=== PATIENT | female | born 1965 | race Caucasian/White ===

== ENCOUNTER 2019-02-19 13:51 | Inpatient (IN) | payer OTHER ==
[~2019-02-19] VITALS: Ht 172.7 cm; Wt 68.0 kg
--- NOTE | 2019-02-19 14:02 | NUR ---
PT BIB BY AMBULANCE. SON CALLED 911 FOR PROGRESSIVE SLURRED SPEECH ALONG WITH DIFFICULTY IN ADL'S AND WALKING FOR THE LAST 6 MONTHS. PT ARRIVES ALERT WITH SLURRED SPEECHA ND UNABLE TO ANSWER QUESTIONS APPROPRIATELY. PT APPEARS TO BE WEAK. PER SON AT BEDSIDE PT HAS HX OF ARTHRITIS AND DEPRESSIO DUE TO HER HUSBANDD 2 YEARS AGO. CONNECTED TO MAIL MANAGER AND VSS. DR COLES AT BEDSIDE
[2019-02-19 14:19] LABS: BASOPHIL % 0.5 % (0-2); PLATELET COUNT 294 x10^3mcL (130-400); RED CELL DISTRIBUTION WIDTH 14.2 % (11.5-14.5)
[2019-02-19 14:31] LABS: ALKALINE PHOSPHATASE 117 U/L (46-116); ALT/SGPT 64 U/L (14-59); AST/SGOT 35 U/L (15-37); BILIRUBIN TOTAL 1.8 mg/dL (0.20-1.00); CALCIUM 9.1 mg/dL (8.5-10.1); CARBON DIOXIDE 33.1 mmol/L (21-32); CHLORIDE SERUM 104 mmol/L (98-107); CREATININE SERUM 0.6 mg/dL (0.6-1.0); GFR1 > 60 mL/min; GLUCOSE SERUM 112 mg/dL (74-106); SODIUM SERUM 145 mmol/L (136-145); TOTAL PROTEIN, SERUM 6.6 g/dL (6.4-8.2)
[2019-02-19 14:42] LABS: ALBUMIN 3.3 g/dL (3.4-5.0); POTASSIUM SERUM 2.8 mmol/L (3.5-5.1)
--- NOTE | 2019-02-19 14:44 | NUR ---
ATTEMPTED TO TAKE PT TO RESTROOM VIA WHEELCHAIR FOR URINE SAMPLE. PT WAS UNABLE TO URINATE. DR. COLES MADE AWARE.
--- NOTE | 2019-02-19 14:49 | NUR ---
PT OFF FLOOR TAKEN FOR CT.
[2019-02-19 15:53] LABS: AMPHETAMINE QUAL UR NONE DETECTED (See below)
--- NOTE | 2019-02-19 16:22 | NUR ---
REPORT GIVEN TO MESHA BOWDEN ON MED/SURG UNIT TO ASSUME CARE OF PT.
--- NOTE | 2019-02-19 16:39 | NUR ---
RECEIVED PT FROM ED VIA Flowgram, PER PT'S SON PT USUALLY HAS X4 EPISODES OF FALL EVERY DAY. PT IS AAOX2 (PERSON, PLACE AND BIRTHDATE). ABLE TO FOLLOW SIMPLE COMMANDS. SLURRED AND SLOW SPEECH. HAND PRESCHOOL DIRECTOR ARE WEAK BUT EQUAL. NO FACIAL DROOP. NO SOB NOTED, LUNG SOUNDS CTA, O2 SAT=98%, RA. DENIES CHEST PAIN/PRESSURE, NSR. DENIES ABDOMINAL DISCOMFORT. W/ RLE SPLINT, PT ABLE TO MOVE TOES. DENIES NUMBNESS/TINGLING SENSATION. LIMITED ROM ON RLE. STATED THAT SHE HAS 2/10 ACHING RLE PAIN WORSE ON MOVEMENT. IV SITE ON THE RAC IS PATENT AND INTACT. SIDE RAILS UPX2. CALL LIGHT ON REACH. PT'S SON AT BEDSIDE. PRIMARY NURSE KAL AT BEDSIDE FOR CONTINUITY OF CARE
[2019-02-19 16:51] VITALS: BP 114/75
[2019-02-19 17:00] VITALS: Ht 172.7 cm; Wt 68.0 kg
--- NOTE | 2019-02-19 17:40 | NUR ---
DR GREY PAGED AT THIS TIME REGARDING PATIENTS TELEMETRY STATUS. ADMIT ORDER FOR M/S. TO RECOMMEND POSSIBLE TELE PATIENT DUE TO K 2.8.
[2019-02-19 18:04] LABS: FREE T4 1.29 ng/dL (0.76-1.46); FREE THYROXINE INDEX 3.1 ug/dL (1.4-4.5); T4(THYROXINE) 8.6 ug/dL (4.7-13.3)
[2019-02-19 18:16] LABS: T3 TOTAL 1.11 ng/mL
[2019-02-19 18:19] LABS: CHOLESTEROL/HDL RATIO 4.2; MAGNESIUM 2.2 mg/dL (1.8-2.4); PHOSPHOROUS 3.6 mg/dL (2.5-4.9)
--- NOTE | 2019-02-19 18:19 | NUR ---
PATIENT TAKEN OFF TELE AND TRANSITIONED TO MED SURG AT THIS TIME.
--- NOTE | 2019-02-19 19:37 | NUR ---
RECEIVED PT FROM PREVIOUS SHIFT. AAO. ABLE TO MAKE NEEDS KNOWN. SPEECH SLURRED BUT APPROPRIATE. MEDSURG. DENIES PAIN. NO C/O HEADACHE/DIZZINESS. BREATHING E/U ON RA. NO SOB. IV SITE TO RAC, CDI, IVF INFUSING WELL. NO ERYTHEMA OR SWELLING NOTED AT SITE. CALL LIGHT WITHIN REACH. SAFETY MEASURES IN PLACE. DAUGHTER AT BEDSIDE. WILL CONTINUE TO MONITOR.
[2019-02-19] MEDS ORDERED: PROZ20 PO (19:39)
[2019-02-19] MEDS ORDERED: CELEBREX200 MG PO (19:39)
[2019-02-19] MEDS ORDERED: LOSARTAN POTASS50 M1 PO (19:44)
--- NOTE | 2019-02-19 19:47 | NUR ---
PT ABOUT TO BE TAKEN DOWN VIA GUNEY FOR CT SCAN OF R ANKLE ACCOMPANIED BY TECH.
--- NOTE | 2019-02-19 20:05 | NUR ---
PT RETURNED FROM CT SCAN. NO S/S ACUTE DISTRESS.
[2019-02-19 20:24] VITALS: BP 115/70
--- NOTE | 2019-02-19 21:24 | NUR ---
DR. CASANOVA AND DR. HURTADO AT BEDSIDE FOR MSE.
--- NOTE | 2019-02-20 00:47 | NUR ---
PT RESTING IN BED WITH EYES CLOSED. NO S/S ACUTE DISTRESS. BREATHING E/U. SAFETY MEASURES IN PLACE. CALL LIGHT WITHIN REACH. WILL CONTINUE TO MONITOR.
--- NOTE | 2019-02-20 04:57 | NUR ---
PT C/O HEADACHE, UNABLE TO RATE ON SCALE, MEDICATED PER EMAR.
[2019-02-20 05:16] VITALS: BP 117/77
--- NOTE | 2019-02-20 06:17 | NUR ---
PT STILL C/O 8/10 HEADACHE PAIN, MEDICATED PER EMAR.
[2019-02-20 06:39] LABS: CALCIUM 8.4 mg/dL (8.5-10.1); CARBON DIOXIDE 28.8 mmol/L (21-32); CHLORIDE SERUM 108 mmol/L (98-107); CREATININE SERUM 0.5 mg/dL (0.6-1.0); GFR1 > 60 mL/min; GLUCOSE SERUM 105 mg/dL (74-106); SODIUM SERUM 145 mmol/L (136-145)
--- NOTE | 2019-02-20 07:23 | NUR ---
RECEIVED ASLEEP BUT AROUSABLE. IN NO RESP. DISTRESS. VS STABLE. NO C/O PAIN OR DISCOMFORT AT THIS TIME. IVF INFUSING WELL. CALL LIGHT WITHIN REACH. WILL CONTINUE WITH PLAN OF CARE.
[2019-02-20 07:50] LABS: BASOPHIL % 0.5 % (0-2); PLATELET COUNT 259 x10^3mcL (130-400); RED CELL DISTRIBUTION WIDTH 13.9 % (11.5-14.5)
[2019-02-20 08:16] VITALS: BP 118/78
--- NOTE | 2019-02-20 08:25 | NUR ---
ECHOCARDIOGRAM PENDING-HAVING BREAKFAST
--- NOTE | 2019-02-20 12:15 | NUR ---
FAMILY AT BEDSIDE. PT IN NO DISTRESS. DENIES ANY DISCOMFORT. CALL LIGHT WITHIN REACH.
--- NOTE | 2019-02-20 16:20 | NUR ---
REPOSITIONED IN BED FOR COMFORT. NO DISTRESS NOTED. NO C/O PAIN.
[2019-02-20 17:09] VITALS: BP 118/80
--- NOTE | 2019-02-20 18:48 | NUR ---
REMAINS IN NO DISTRESS. AWAKE AND ALERT. WITH SLURRED SPEECH BUT ABLE TO MAKE NEEDS KNOWN. NO C/O PAIN OR DISCOMFORT AT THIS TIME. CALL LIGHT WITHIN REACH. IVF INFUSING TO KVO AND SITE CLEAR. WILL BE ENDORSED TO INCOMING SHIFT.
--- NOTE | 2019-02-20 19:20 | NUR ---
RECEIVED PT FROM PREVIOUS SHIFT NURSE. PT AOX3, SPEECH SLURRED. DENIES VASQUEZ/DIZZINESS. MED SURG PT. DENIES CP/PRESSURE. DENIES SOB/DIFFICULTY BREATHING, ON RA. IV TO R. HAND, INTACT AND PATENT. SPLINT TO L. LEG. BED IN LOWEST POSITION. CALL LIGHT WITHIN REACH. WILL CONTINUE TO MONITOR.
[2019-02-20 20:35] VITALS: BP 118/77
--- NOTE | 2019-02-21 03:15 | NUR ---
PT RESTING IN BED. RR EVEN AND UNLABORED. IN NO ACUTE DISTRESS. CALL LIGHT WITHIN REACH. BED IN LOWEST POSITION. WILL CONTINUE TO MONITOR.
[2019-02-21 05:04] VITALS: BP 130/85
[2019-02-21 05:59] LABS: BASOPHIL % 0.8 % (0-2); PLATELET COUNT 242 x10^3mcL (130-400); RED CELL DISTRIBUTION WIDTH 14.1 % (11.5-14.5)
[2019-02-21 06:31] LABS: CALCIUM 8.7 mg/dL (8.5-10.1); CARBON DIOXIDE 29.7 mmol/L (21-32); CHLORIDE SERUM 109 mmol/L (98-107); CREATININE SERUM 0.5 mg/dL (0.6-1.0); GFR1 > 60 mL/min; GLUCOSE SERUM 101 mg/dL (74-106); MAGNESIUM 1.8 mg/dL (1.8-2.4); PHOSPHOROUS 3.4 mg/dL (2.5-4.9); SODIUM SERUM 146 mmol/L (136-145)
--- NOTE | 2019-02-21 07:00 | NUR ---
RECEIVED BEDSIDE REPORT FROM SORTER OPERATOR NURSE. PATIENT RESTING COMFORTABLY IN BED. NO APPARENT DISTRESS OR DISCOMFORT NOTED. BREATHING EVEN AND UNLABORED. NO RESPIRATORY DISTRESS NOTED. PATIENT DENIES CHEST PAIN/PRESSURE. IV PATENT AND INTACT. SPLINT NOTED TO LEFT LEG. PATIENT DENIES PAIN AT THIS TIME.ALL QUESTIONS AND CONCERNS ADDRESSED. ALL NEEDS ATTENDED TO. WILL CONTINUE TO MONITOR
[2019-02-21 08:14] VITALS: BP 123/77
--- NOTE | 2019-02-21 10:37 | NUR ---
ALL MORNING MEDICATIONS ADMINISTERED. PATIENT TOLERATED MEDICATION WELL. NO APPARENT DISTRESS OR DISCOMFORT NOTED. NO ADVERSE EFFECTS NOTED. ALL NEEDS ATTENDED TO. WILL CONTINUE TO MONITOR
--- NOTE | 2019-02-21 12:15 | NUR ---
DR RENEE AT BEDSIDE REVIEWING POC WITH PATIENT AT THIS TIME. ALL QUESTIONS AND CONCERNS ADDRESSED. ALL NEEDS ATTENDED TO. WILL CONTINUE TO MONITOR
--- NOTE | 2019-02-21 12:24 | NUR ---
Initial Nutrition Assessment: (246-B) MOSES GRIMES 54F Dx: Progressive weakness, failure to thrive, hypokalemia PMHx: HTN, Depression, Arthritis PSHx: Int Fix both femurs Labs: Na 146 H, K 4.0 WNL, Cl 109 H, Cr 0.5 L, Alb 3.3 L, ALT 64 H, Alk Phos 117 H, HDL 35 L, BNP 9.31 L Meds: Colace, Cozaar, Protonix, Zofran Diet: Regular PO intake since admission: <50% Ht: 68in Wt: 149# BMI: 22.7 Bed scale: 160.5# IBW: 140# %IBW: 106% UBW: 150# Age: 54 Food Allergies: NKFA Skin: Rufus: 17 Edema: Trace L ankle GI: Last BM: 02/18 RD Note (02/21): Consult received for dysphagia; swallow eval order for ROOM ATTENDANT received 02/20. Visited pt bedside, pt's daughter, , and kids present. Spoke w/ pt and daughter, daughter states to have more accurate information about pt vs pt r/t altered mental status.. Daughter states pt can chew but just cannot swallow, has poor PO, eats very little from trays. Daughter states pt has lost 50# in the last 6 months, pt lives w/ pt's son. Awaiting results from swallow eval for diet texture. Pt appropriate for diet supplementation, daughter would like to receive vanilla flavor w/ each meal. Spoke w/ Dr [place] Sayed regarding ONS, confirmed. Problem with: N/V/D/C: None Problems with: Chewing: No Swallowing: Yes Current appetite: Poor, per daughter Recent wt change: 50# x 6mo, per daughter %wt change: 25%, per daughter Vitamin/Supplement use: None Special diet at home: Regular Physical activity: N/A Nutrition education given (specify specific nutrition education and handout given): None given at this time. Food-drug interactions? Education given? None given at this time. Estimated Nutritional Needs Based on current body weight (68 kg) Energy: 3737-9962 kcal/day (25-30 kcal/kg for maintenance) Protein: 68-82 g/day (1.0-1.2 g/kg for maintenance) Fluid: 8497-1570 mL/day (1 mL/kcal) or per MD Nutrition Diagnosis: Inadequate protein-energy intake r/t dysphagia, poor appetite AEB PO intake <50% of meals Intervention 1. Continue Regular diet order, adjust texture per ROOM ATTENDANT and MD for swallow eval r/t dysphagia. 2. Add Ensure Pudding Vanilla TID w/ each meal. 3. Add Ensure Enlive Vanilla QD snack. Monitor/Evaluate Goal: PO intake at least 75% of estimated needs Monitor: PO intake, Labs, GI function F/U in 3-5 days as modeate risk 02/24-02/26
--- NOTE | 2019-02-21 12:26 | NUR ---
Recommendations: 1. Continue Regular diet order, adjust texture per PROFESSOR OF COMMUNICATION AND WRITING and MD for swallow eval r/t dysphagia. 2. Add Ensure Pudding Vanilla TID w/ each meal. 3. Add Ensure Enlive Vanilla QD snack.
--- NOTE | 2019-02-21 15:43 | NUR ---
PT WAS SEEN FOR DYSPHAGIA. PT WAS ABLE TO SAFELY SWALLOW MS DIET WITH THIN LIQUID WITHOUT S/S OF ASPIRATION. MILD DIFFICULTY WITH MASTICATION SKILLS FOR REGULAR DIET. RECOMMENDATION MS DIET WITH CHOPPED MEAT AND VEG WITH THIN LIQUID SMALL BITES AND SIPS ONLY
--- NOTE | 2019-02-21 15:45 | NUR ---
SPEECH THERAPIST CHRISTIAN AT BEDSIDE EVALUATING PATIENT. PER CHRISTIAN, PATIENT TO BE ON MECHANICAL SOFT CHOPPED REGULAR DIET. SPOKE TO DR GREY REGARDING DIET ORDER CHANGE AND HE IS TO CHANGE DIET ORDER AT THIS TIME. WILL CONTINUE TO MONITOR
[2019-02-21 17:24] VITALS: BP 124/81
--- NOTE | 2019-02-21 18:47 | NUR ---
PATIENT RESTING COMFORTABLY IN BED AT THIS TIME. NO APPARENT DISTRESS OR DISCOMFORT NOTED. IV PATENT AND INTACT. ALL QUESTIONS AND CONCERNS ADDRESSED. ALL NEEDS ATTENDED TO. SAFETY PRECAUTIONS MAINTAINED. WILL ENDORSE ALL CARE TO CHEMIST HELPER NURSE
--- NOTE | 2019-02-21 19:45 | NUR ---
RECEIVED AWAKE IN BED, SKIN WARM AND DRY TO TOUCH WITH 2+EDEMA ON LLE, NOTICED WITH SLOW THOUGH PROCESS, SLOW TO RESPOND WITH SLURRED SPEECH, DENIES ANY HEADACHE/DISCOMFORT AT THIS TIME. PLACED CALL LIGHTWITHIN REACH, INSTRUCTED TO CALL FOR ANY ASSISTANCE NEEDED. WILL CONTINUE TO MONITOR.
--- NOTE | 2019-02-21 21:30 | NUR ---
ALL DUE MDICATIONS GIVEN AND WELL TOLERAED. ASSISTED IN REPOSITIONING FOR COMFORT.
[2019-02-21 21:33] VITALS: BP 127/84
--- NOTE | 2019-02-21 23:56 | NUR ---
ASSISTED WITH BEDPAN FOR BLADDER ELIMINATION. GOOD PERICARE RENDERED. KEPT CLEAN AND DRY. CALL LIGHT WITHIN REACH.
--- NOTE | 2019-02-22 00:10 | NUR ---
EYES CLOSED, APPARENTLY ASLEEP, BUT AROUSABLE TO TACTILE/VERBAL STIMULI. UA SHOWS WITH 1+ LEUKOCYTE EASTEARASE WITH MANY BACTERIA. DR PRINCE MADE AWARE, AWAITNG FOR NEW ORDER.
--- NOTE | 2019-02-22 00:30 | NUR ---
EYES CLOSED, APPARENTLY ASLEEP SOUNDLY, AROUSABLE TO VERBAL STIMULI. RESPIRATION UNLABORED. BED IN LOWEST POSITION.
--- NOTE | 2019-02-22 05:46 | NUR ---
INCONTINENT OF URIN. GOOD PERICARE RENDERED. KEPT CLEAN AND DRY. ALL NEEDS ATTENDED.
[2019-02-22 05:58] VITALS: BP 121/80
[2019-02-22 06:00] LABS: BASOPHIL % 0.8 % (0-2); PLATELET COUNT 305 x10^3mcL (130-400)
[2019-02-22 06:18] LABS: CALCIUM 8.8 mg/dL (8.5-10.1); CARBON DIOXIDE 29.6 mmol/L (21-32); CHLORIDE SERUM 109 mmol/L (98-107); CREATININE SERUM 0.5 mg/dL (0.6-1.0); GFR1 > 60 mL/min; GLUCOSE SERUM 106 mg/dL (74-106); POTASSIUM SERUM 4.1 mmol/L (3.5-5.1); SODIUM SERUM 145 mmol/L (136-145)
--- NOTE | 2019-02-22 07:27 | NUR ---
ASSUMED CARE OF PATIENT. SEEN RESTING THIS MORNING, EASILY AROUSABLE. NO COMPLAINTS OF PAIN OR DISCOMFORT. NO APPARENT DISTRESS NOTED. IV ON RFA PATENT AND INFSUING NS AT 10ML/HR. NO REDNESS/SWELLING NOTED. WILL CONTINUE TO MONITOR.
--- NOTE | 2019-02-22 09:35 | NUR ---
PATIENT SEEN RESTING IN BED WITH FAMILY AT BEDSIDE. NO ACUTE COMPLAINTS AT THIS TIME.
[2019-02-22 10:11] VITALS: BP 124/81
--- NOTE | 2019-02-22 11:19 | NUR ---
PATIENT RESTING IN BED. FLUFFED PILLOWS ON LEFT EXTREMITY CAST AND APPLIED ADDITIONAL PILLOW. PATIENT SEEN WEEPING AND TEARFUL AFTER DAUGHTER AND SON LEFT.
--- NOTE | 2019-02-22 14:40 | NUR ---
PRN TYLENOL PROVIDED FOR 5/10 HEADACHE.
--- NOTE | 2019-02-22 15:14 | NUR ---
PATIENT REMINDED OF NEED FOR URINE SAMPLE. UNABLE TO COLLECT THIS TIME PATIENT IS INCONTINENT.
--- NOTE | 2019-02-22 15:41 | NUR ---
URINE SPECIMEN COLLECTED AND SENT TO LAB
[2019-02-22 16:27] LABS: microscopic required? YES; urine erythrocyte NEGATIVE (NEGATIVE)
--- NOTE | 2019-02-22 17:32 | NUR ---
PATIENT SEEN RESTING IN BED WITH LEFT LEG ELEVATED. NO COMPLAINTS OF PAIN OR DISCOMFORT. NO APPARENT DISTRESS NOTED. NO NEW ISSUES.
[2019-02-22 17:33] VITALS: BP 123/79
--- NOTE | 2019-02-22 18:41 | NUR ---
PATIENT SEEN RESTING IN BED WITH NO COMPLANTS OF PAIN OR DISCOMFORT. NO DISTRESS NOTED. IV ON RFA PATENT AND INFUSING 10ML/HR NS. CAST ON LEFT LEG ELEVATED ON 2 PILLOWS, SENSATIONS INTACT ON DISTAL AREAS OF CAST. NO SWELLING OR REDNESS NOTED AROUND CAST. WILL ENDORSE CARE TO ONCOMING RN.
--- NOTE | 2019-02-22 19:54 | NUR ---
RECEIVED AWAKE IN BED WATCHING TV, ALERT BUT SLOW TO RESPOND WITH SLURRED SPEECH. SKIN WARM AND DRY TO TOUCH. RESPIRATION EVEN AND UNLABORED. LEFT LEG WITH SPLINT M KEPT NWB/ELEVATED WITH PILLOWS. DENIES ANY PAIN/DISCOMFORT AT THIS TIME. IV SITE AT THE RFA INTACT AND PATENT. NO S/S OF INFILTRATION NOTED. CALL LIGHT WITHIN REAC, BED IN LOWEST POSITION.
[2019-02-22 20:36] VITALS: BP 114/73
--- NOTE | 2019-02-22 22:00 | NUR ---
DUE MEDICATIONS GIVEN AND WELL TOLERATED. TURNED AND REPOSITIONED FOR COMFORT.
--- NOTE | 2019-02-23 02:53 | NUR ---
ROCEPHIN 1GM IVPB GIVEN FOR EMPIRIC MANAGEMENT OF UIT ORDERED, NO ADVERSE REACTION NOTED. ORAL FLUIDS TOLERATED WELL. NO S/S OF ASPIRATION NOTED.
--- NOTE | 2019-02-23 03:22 | NUR ---
C/O SEVERE GENERALIZED BODY PAIN, ON SCALE 8/10. MORPHINE 2MG IVP PRN MEDCATION. ASSISTED IN REPOSITIONING TO LEFT TECHNICIAN TELECOMMUNICATION SYSTEMS FOR COMOFRT, PILLOWS FOR SUPPORT. KEPT CLEAN AND DRY. WILL CONTINUE TO MONITOR.
--- NOTE | 2019-02-23 04:10 | NUR ---
PAIN LEVEL REASSESSED, 0/10. ORAL FLUIDS TAKEN TOLERATING WELL. NO S/S OF ASPIRATION NOTED.
--- NOTE | 2019-02-23 05:50 | NUR ---
C/O MODERATE PAIN AT THE LEFT LOWER EXTREMITY. NORCO 7.5MG/325 1TAB GIVEN PO PRN MEDICATION. INCONTINENT OF URINE. GOOD PERICARE RENDERED. KEPT CLEAN AND DRY. ALL NEEDS ATTENDED.
[2019-02-23 06:03] LABS: BASOPHIL % 0.6 % (0-2); PLATELET COUNT 314 x10^3mcL (130-400); RED CELL DISTRIBUTION WIDTH 13.8 % (11.5-14.5)
[2019-02-23 06:16] VITALS: BP 130/83
[2019-02-23 06:18] LABS: CALCIUM 9.2 mg/dL (8.5-10.1); CARBON DIOXIDE 24.9 mmol/L (21-32); CHLORIDE SERUM 107 mmol/L (98-107); CREATININE SERUM 0.4 mg/dL (0.6-1.0); GFR1 > 60 mL/min; GLUCOSE SERUM 107 mg/dL (74-106); POTASSIUM SERUM 3.9 mmol/L (3.5-5.1); SODIUM SERUM 142 mmol/L (136-145)
[2019-02-23 09:20] VITALS: BP 116/78
--- NOTE | 2019-02-23 11:05 | NUR ---
AT 0730 - RECEIVED PATIENT FROM NIGHT NURSE. AWAKE, ALERT. APPEARS ORIENTED TO PERSON, PLACE AND TIME. SPEECH DIFFICULT TO UNDERSTAND. AT 0755 - PATIENT ASSISTED WITH BREAKFAST. TOLERATING SOFT/PUREED FOOD BUT APPEARS TO COUGH WITH SOLIDS EVEN MECHANICAL CHOPPED. PATIENT SAYS THAT SHE FEELS TOO WEAK TO FEED SELF. AT 0830 - DENIES ANY PAIN. LEFT LEG IN CAST AND ELEVATED ON PILLOW.
--- NOTE | 2019-02-23 14:08 | NUR ---
RESTING QUIETLY. HAS EATEN LUNCH. DENIES ANY PAIN.
--- NOTE | 2019-02-23 16:32 | NUR ---
PATIENT REPROTS GOOD RELIEF OF PAIN IN LLE AFTER RECEIVING NORCO PER EMAR.
[2019-02-23 16:43] VITALS: BP 121/79
--- NOTE | 2019-02-23 18:31 | NUR ---
PATIENT SITTING UP INB ED WATCHING TV. HAS EATEN DINNER AND WAS ABLE TO FEED SELF. VSS. PAIN UNDER CONTROL AT THIS TIME. LLE ELEVATED ON PILLOW. PATIENT ABLE TO REPOSITION SELF IN BED. USING BEDPAN FOR TOILET NEEDS. WILL ENDORSE CARE TO NIGHT NURSE.
--- NOTE | 2019-02-23 19:30 | NUR ---
SHIFT REASSESSMENT DONE.PATIENT ALERT ORIENTED X 3,DEPRESSION NOTED.BREATHING EASY.LLE CAST S/P FALL.NWB,PHYSICAL THERAPY.HEPLOCK RFA INTACT NS TKO.HEPARIN SQ.LLE EDEMA NOTED.VOIDING PER BEDPAN.NORCO FOR PAIN PRN.CALL LIGHT IN REACH.
--- NOTE | 2019-02-23 20:14 | NUR ---
WANTED PAIN MED AND GIVEN,ALSO HEPARIN SQ GIVEN.CALL LIGHT IN REACH.
[2019-02-23 20:21] VITALS: BP 117/76
--- NOTE | 2019-02-23 20:38 | NUR ---
REMINDED TO CALL FOR ASSISTANCE.
--- NOTE | 2019-02-23 23:18 | NUR ---
BEDPAN ASSIST BY WELDING PRODUCTION SUPERVISOR,VOIDING.
--- NOTE | 2019-02-23 23:34 | NUR ---
JUST GIVEN PAIN SHOT,LEG PAIN.PATIENT AWAKE,QUIET ENVIRONMENT MAINTAINED,CALL LIGHT IN REACH.
--- NOTE | 2019-02-24 02:43 | NUR ---
PT COMPLAINING OF LT LEG PAIN AND REQUESTING PAIN MED. GIVEN NORCO PO AT THIS TIME. PT SWALLOWS WELL WITHOUT DIFFULTY.
[2019-02-24 05:16] VITALS: BP 118/79
[2019-02-24 07:03] LABS: BASOPHIL % 0.5 % (0-2); PLATELET COUNT 315 x10^3mcL (130-400)
[2019-02-24 07:22] LABS: CALCIUM 8.8 mg/dL (8.5-10.1); CARBON DIOXIDE 28.2 mmol/L (21-32); CHLORIDE SERUM 105 mmol/L (98-107); CREATININE SERUM 0.5 mg/dL (0.6-1.0); GFR1 > 60 mL/min; GLUCOSE SERUM 108 mg/dL (74-106); POTASSIUM SERUM 3.9 mmol/L (3.5-5.1); RED CELL DISTRIBUTION WIDTH 14.8 % (11.5-14.5); SODIUM SERUM 140 mmol/L (136-145)
--- NOTE | 2019-02-24 07:30 | NUR ---
PT ENDORSE TO ME THIS MORNING. LAYING IN BED RESTING. AA/OX3 CONFUSE AT TIMES. BREATING EVEN AND UNLABORED ON RA, NO ACUTE RESP DISTRESS OR SOB NOTED. MEDSURG/ DENIES ANY CP OR PRESSURE. SQ HEP PROTOCAL INPLACE DUE TO LEFT ANKLE FX/ CAST INTACT. BOWEL SOUNDS ACTIVE IN ALL FOUR QUADS, LAST BM 02/22 FORMED. VOIDS USING THE BEDPAN/ KNOWS TO CALL FOR ASSIST AT TIMES. L FOOT ELEVATED ON TWO PILLOWS. IV TO THE RFA INTACT AND PATENT/HEPLOCKED NO REDNESS OR SWELLING NOTED. CALL LIGHT IN REACH. BED IN LOW POSITION. BY NURSING STATION, WILL CONTINUE TO MONITOR.
[2019-02-24 08:41] VITALS: BP 123/83
--- NOTE | 2019-02-24 13:32 | NUR ---
Follow-up Nutrition Assessment: (246-B) MOSES GRIMES 54F Dx: Progressive weakness, failure to thrive, hypokalemia PMHx: HTN, Depression, Arthritis Labs: BG 108 H, Cr 0.5 L, Alb 3.3 L, ALT 64 H, Alk Phos 117 H, HDL 35 L Meds: Colace, Cozaar, Protonix, Prozac, Rocephin, Zofran Diet: [facility] soft-chopped PO Intake: <75% Weights: 149# (02/23) 149# (02/19) 160# (02/19) Skin: LLE cast noted to foot r/t Fx, pulses intact Rufus: 16 I/Os: 1110/800 (02/24) 1510/200 (02/23) 1810/2 (02/22) 1180/250 (02/21) Edema: LLE r/t L ankle Fx GI: formed per pt, BS active all 4 quads Last BM: 02/22 RD Note (02/24): Visited pt bedside, pt's daughter and son-in-law present, spoke w/ all. Daughter and confirmed pt's altered mental status, and state that pt does not give accurate information. Daughter and cannot verify how pt is eating, but pt states she is eating good and drinks everything. Pt's PO has slightly improved from <50% to >50%, per PO assessment. Pt states L ankle pain about 5/10. Daughter and want to know if there will be a psychiatry evaluation so that they can speak with psychiatrist as well. Pt discussed in bed huddles, plans for discharge to SNF, [facility]. Weighed pt on bedscale, noted 158.7#. Pt, daughter, and deny any wt loss from pt. states pt alright w/ chewing, swallowing is difficult for her. Daughter and husbnad agreeable to pt continue to receive pudding and Ensure Enlive. Estimated Nutritional Needs Based on current body weight (68 kg) Energy: 7335-2764 kcal/day (25-30 kcal/kg for maintenance) Protein: 68-82 g/day (1.0-1.2 g/kg) Fluid: 8422-6503 mL/day (1 mL/kcal) or per MD Nutrition Diagnosis 02/20: Inadequate protein-energy intake r/t dysphagia, poor appetite AEB PO intake <50% of meals. 02/24: No new nutrition diagnosis at this time. Intervention 1. Continue current diet order: [facility] soft-chopped texture w/ pudding TID & Ensure Enlive QD Monitor/Evaluate Goal: Have pt meet at least 75% of estimated needs Monitor: PO intake, Labs, GI function F/U in 3-5 days as low risk 02/27-03/01
--- NOTE | 2019-02-24 13:32 | NUR ---
Recommendations: 1. Continue current diet order: mech soft-chopped texture w/ pudding TID & Ensure Enlive QD
--- NOTE | 2019-02-24 13:33 | NUR ---
PT TOLERATED 50% OF LUNCH TOLERATED WELL WITH ASSISTANCE. FAMILY AT BEDSIDE. PRODUCTION DEPARTMENT SUPERVISOR AT BEDSIDE DISCUSSING PLAN. WILL CONTINUE TO MONITOR.
[2019-02-24 17:22] VITALS: BP 116/78
--- NOTE | 2019-02-24 18:34 | NUR ---
NO ACUTE CHANGES AT THIS TIME. NO ACUTE RESP DISTRESS OR SOB NOTED. DENIES ANY L FOOT PAIN AT THIS TIME, REMAINS ELEVATED ON TWO PILLOWS, LEFT CAST INTACT. IV TO THE RFA INTACT AND PATENT/ NO REDNESS OR SWELLING NOTED TO SITE. CALL LIGHT IN REACH/BY NURSING STATION. WILL ENDORSE TO INCOMING RN.
[2019-02-24 19:55] VITALS: BP 102/66
--- NOTE | 2019-02-24 21:30 | NUR ---
PT C/O OF ITCHINESS TO LLE. DR. HURTADO NOTIFIED AND REQUESTED PRN BENADRYL. WILL CONTINUE TO MONITOR.
--- NOTE | 2019-02-25 02:02 | NUR ---
PT REMAINS IN BED AT THISTIME RESTING IN BED WITH EYES CLOSED. NO SIGNS OF DISTRESS. WILL CONTINUE TO MONITOR.
--- NOTE | 2019-02-25 04:30 | NUR ---
PT REMAINS IN BED AT THIS TIME RESTING WITH EYES CLOSED. NO SIGNS OF DISTRESS. WILL CONTINUE TO MONITOR.
[2019-02-25 04:40] VITALS: BP 105/72
--- NOTE | 2019-02-25 06:26 | NUR ---
PT REMAINS CALM ADN COOPERATIVE IN BED. PT ROMA PAIN OR DSICOMFORT. PT ABLE TO REPOSITION SELF. PT REMAINS CONTINENT OF BLADDER. PT HAS HARD CAST IN PLACE TO LLE WITH CIRCULATION NOTED TO BE WNL. PT C/O ITCHINESS TO LLE AND ONE TIME ORDER OF BENEDYL GIVEN ORDERED. PT TOLERATED WELL. ALL PT NEEDS MET. NO SIGNS OF DISTRESS. WILL ENDORSE TO DAY NURSE.
[2019-02-25 06:28] LABS: BASOPHIL % 0.7 % (0-2); PLATELET COUNT 318 x10^3mcL (130-400); RED CELL DISTRIBUTION WIDTH 14.5 % (11.5-14.5)
[2019-02-25 06:40] LABS: CALCIUM 9.5 mg/dL (8.5-10.1); CARBON DIOXIDE 28.5 mmol/L (21-32); CHLORIDE SERUM 105 mmol/L (98-107); CREATININE SERUM 0.5 mg/dL (0.6-1.0); GFR1 > 60 mL/min; GLUCOSE SERUM 98 mg/dL (74-106); POTASSIUM SERUM 3.9 mmol/L (3.5-5.1); SODIUM SERUM 141 mmol/L (136-145)
--- NOTE | 2019-02-25 07:23 | NUR ---
PT ENDORSE TO ME THIS MORNING. LAYING IN BED RESTING. AA/O X3. BREATHING EVEN AND UNLABORED ON RA, NO ACUTE RESP DISTRESS OR SOB NOTED. MEDSURG/ DENIES ANY CP OR PRESSURE. ON HEP SQ PROTOCAL DUE TO L FOOT FX/ CAST INTACT. BOTH FEET ELEVATED ON TWO PILLOWS. BOWEL SOUNDS ACTIVE IN ALL FOUR QUADS. VOIDS USING BEDPAN, KNOW TO CALL FOR ASSIST. IV TO THE RFA INTACT AND PATENT/ NO REDNESS OR SWELLING NOTED. CALL LIGHT IN REACH. WILL CONTINUE TO MONITOR.
[2019-02-25 09:19] VITALS: BP 110/50
--- NOTE | 2019-02-25 10:53 | NUR ---
PT C/O OF L FOOT PAIN 03/29, MEDICATED PER EMAR
[2019-02-25 16:26] VITALS: BP 105/65
--- NOTE | 2019-02-25 19:05 | NUR ---
RECEIVED PT FROM PREVIOUS SHIFT. AAO X3. MEDSURG. ABLE TO MAKE NEEDS KNOWN. SPEECH SLURRED AND SLOW. PT AWARE OF PLANS FOR TRANSFER LATER ON. PT CHANGED INTO [place]. NO S/S ACUTE DISTRESS. BREATHING E/U ON RA, NO SOB OBSERVED. PT DENIES PAIN. LLE IN CAST AND ELEVATED ON PILLOWS. IV SITE CDI, NO ERYTHEMA OR EDEMA NOTED. CALL LIGHT WITHIN REACH. SAFETY MEASURES IN PLACE. WILL CONTINUE TO MONITOR.
--- NOTE | 2019-02-25 19:30 | NUR ---
NO ACUTE CHANGES AT THIS TIME. NO ACUTE RESP DISTRESS OR SOB NOTED. IV TO THE RFA INTACT AND PATENT/ PENDING SNF PICKUP AT 1030PM. NIGHT RN AWARE OF DETAILS. WILL ENDORSE TO INCOMING RN.
--- NOTE | 2019-02-25 20:39 | NUR ---
REPORT GIVEN TO MARI AT [facility]. PT TO BE TRANSFERRED TO ROOM 16-C, ACCEPTING DR. MUHAMMAD. ALL QUESTIONS AND CONCERNS ADDRESSED. PT TO BE TRANSPORTED BY [facility] AT 2230.
[2019-02-25 21:11] VITALS: BP 105/65
[2019-02-25 22:05] VITALS: BP 104/68
--- NOTE | 2019-02-25 23:35 | NUR ---
PT RESTING IN BED COMFORTABLY. NO S/S ACUTE DISTRESS. BREATHING E/U ON RA. CALL LIGHT WITHIN REACH. SAFETY MEASURES IN PLACE. WILL CONTINUE TO MONITOR.
--- NOTE | 2019-02-26 02:33 | NUR ---
DROP TESTER CALLED [facility] REGARDING TRANSPORT PICK-UP, PER [facility], THEY WILL BE ABLE TO PICK PT UP IN NEXT 1-2 HOURS. PT CURRENTLY RESTING IN BED WITH EYES CLOSED. NO S/S ACUTE DISTRESS. WILL CONTINUE TO MONITOR.
--- NOTE | 2019-02-26 04:06 | NUR ---
[facility] AT BEDSIDE TO [facility] FOR TRANSPORT. ALL BELONGINGS WITH PT ON [facility]. NO S/S ACUTE DISTRESS. PT AAO. DENIES PAIN. VSS. PT AWARE OF POC AND DISCHARGE. TRANSPORT PAPERWORK PROVIDED TO [facility].
== END 2019-02-26 04:15 | DRG 342 ==
LOC: ED 13:51 → MU 15:18 → DU 17:05 → MU 17:57
PROVIDERS: Emergency Medicine; ADMIT Internal Medicine
DX: S82.54XA Nondisplaced fracture of medial malleolus of right tibia, initial encounter for closed fracture (principal); F33.2 Major depressive disorder, recurrent severe without psychotic features; S82.65XA Nondisplaced fracture of lateral malleolus of left fibula, initial encounter for closed fracture; E44.1 Mild protein-calorie malnutrition; G43.909 Migraine, unspecified, not intractable, without status migrainosus; E87.6 Hypokalemia; F41.9 Anxiety disorder, unspecified; M19.90 Unspecified osteoarthritis, unspecified site; W01.0XXA Fall on same level from slipping, tripping and stumbling without subsequent striking against object, initial encounter; Y93.01 Activity, walking, marching and hiking; R62.7 Adult failure to thrive; I10 Essential (primary) hypertension; Z68.22 Body mass index [BMI] 22.0-22.9, adult; Z88.6 Allergy status to analgesic agent; Z88.8 Allergy status to other drugs, medicaments and biological substances; Y92.89 Other specified places as the place of occurrence of the external cause; Y99.8 Other external cause status; Z79.899 Other long term (current) drug therapy
CPT/HCPCS: 83880; 84439; 92526-GN; 92610; 97110-GP; 97530-GP; G0378; G0480; J0696; J1644; J2270; J3480; J7030; J7050; J7060; Q0092; Q0163